=== PATIENT | female | born 2000 | race Caucasian/White ===

== ENCOUNTER 2022-01-17 03:48 | Inpatient (IN) | payer OTHER ==
[2022-01-17] MEDS ORDERED: Ringers Lactate 1,000 ML IV PRN (04:19)
[2022-01-17] MEDS ORDERED: CARBOPROST TROME 250 MCG/ML IM PRN (04:19)
[2022-01-17] MEDS ORDERED: METHYLERGONOVINE 0.2MG/ML AMP IM PRN (04:19)
[2022-01-17 04:55] VITALS: BMI 41.5
[2022-01-17 04:56] LABS: Absolute Lymphocytes (CBC) 2.9 K/uL (0.7-4.9); Lymphocytes % 21.2 % (15.3-44.8); MPV 8.1 fL (7.6-11.3); RBC Red Blood Cell Count 3.87 M/uL (3.86-4.86)
[2022-01-17] MEDS ORDERED: Ringers Lactate 1,000 ML IV SCH (05:00)
[2022-01-17] MEDS: OXYTOCIN/LR 20 UNIT/1,000 ML BAG IV SCH (05:15)
[2022-01-17] MEDS: BUTORPHANOL 1 MG/ML INJ IV PRN ×2 (10:22→14:47)
[2022-01-17] MEDS: PROMETHAZINE INJ 25 MG/ML AMP IM PRN ×2 (10:24→14:54)
[2022-01-17] MEDS ORDERED: BUPIVACAINE 0.25% PF 10 ML VIAL IJ PRN (12:16)
[2022-01-17] MEDS ORDERED: 0.2% ROPIVACAINE (200 MG/100 ML) BAG EP ONE (12:18)
[2022-01-17] MEDS ORDERED: FENTANYL CITR 100 MCG/2 ML IV ONE (13:00)
[2022-01-17] MEDS ORDERED: ROPIVACAINE HCL 0.2% 20ML AMP IV ONE (13:00)
--- NOTE | 2022-01-17 16:38 | PN ---
The patient is now on 20 milliunits of Pitocin. She was radha every 90 seconds for awhile and has spaced out a little bit. Baby looks good. She is 3 to 3.5, 70%. Baby is still -2 station, well applied to the cervix. She has tried pelvic rocking with birthing ball. She has had 2 doses of Sta dol IV over the last few hours. Discussion with the patient will be set continued to see if we make any progress, but if no progress during the next 2-3 hours, at that point may consider . Rig ht now, I think it is a little early and served as the patient. Full discussion. ANGÉLICA/MYESHA Voice ID: [id number] Report ID: [id number]
[2022-01-17] MEDS ORDERED: CEFAZOLIN 2 GM in NA CHLORIDE 0.9% 100 ML IVPB PRN (17:54)
[2022-01-17] MEDS ORDERED: METOCLOPRAMIDE 10 MG/2mL INJ IV PRN (17:54)
[2022-01-17] MEDS ORDERED: NA CIT/CITRIC AC 30 ML ORAL UDC PO PRN (17:54)
[2022-01-17] MEDS ORDERED: FAMOTIDINE 20 MG/2 ML VIAL IV PRN (17:54)
[2022-01-17] MEDS ORDERED: BUPIVACAINE 0.75% (PF) 2 ML SP ONE (19:20)
[2022-01-17] MEDS ORDERED: LIDOCAINE 1.5% W/EPI AMP 5 ML ONE (19:20)
[2022-01-17] MEDS ORDERED: MORPHINE SULFATE/PF 1 MG/ML (10 ML AMP) ONE (19:20)
[2022-01-17] MEDS ORDERED: Phenylephrine HCl 10 MG/ML 1 ML VIAL ONE (19:21)
--- NOTE | 2022-01-17 19:23 | PN ---
21-year-old female, primigravida, approximately 38 weeks and 3-5 days failure to progress in labor. The patient was on 20 milliunits of Pitocin, radha every 90 seconds during the day never really got below -1 to -2 station. Difficult to say what position the baby was then. Cervix dilated to 3 cm, but the baby never descended as I said past -1 station, probably -2 would be more realistic. Bab y looks good on the monitor. Vital signs were all stable. The patient has requested that we stop Pi tocin and proceed with at this point. Infection; blood loss; anesthetic complications; inju ry to bladder, bowel, ureter; postoperative complications; clots in legs and pneumonia discussed. Th e patient knows fully well, does not constitute all the possible problems that could occur during or following surgery. Anesthesia and support personnel have been notified. Preparations are being made at this point for as expeditiously as possible. No change in physical status. Heart and l ungs are clear. The patient is alert. She has had 2 doses of Stadol IV, but is still quite alert. We will proceed with section for failure to progress, failure to descend the vertex. ANGÉLICA/MYESHA Voice ID: [id number] Report ID: [id number]
[2022-01-17] MEDS ORDERED: OXYTOCIN 10 UNIT/ML ML ONE ×3 (19:54→22:04)
[2022-01-17] MEDS ORDERED: ONDANSETRON 4 MG/2 ML VIAL ONE ×2 (20:18→22:04)
--- NOTE | 2022-01-17 21:16 | CON ---
Date of Consultation: 01/17/2022 Brief History Of Present Illness: The patient is a 21-year-old primigravida, approximately 38 weeks 3-5 days, failure to progress in labor, female, who was radha every 90 seconds, but h er cervix only dilated 3 cm. The baby never descended, station 1, possibly 2, monitored, appeared to be doing well. For the patient, she ultimately failed to progress and as such, it was determined th at the patient needed a . I am consulted to see the patient in the operating room to assist Dr. Gardiner with her emergency . Past Medical History: By report past medical history negative. Past Surgical History: Negative. She is primigravida as described above. Allergies: NO KNOWN DRUG ALLERGIES. Review of Systems: The patient is radha and complaining of contraction pains. Otherwise, no additional complaints . Physical Examination: General: She is awake, alert, and oriented. Psychiatric: She is appropriate, conversive. She appears in moderate pain and distress with her con tractions. HEENT: Otherwise normocephalic. Her sclerae were anicteric. Mucous membranes moist. Oropharynx cl ear. Abdomen: Gravid, appeared to be near full term. She has obesity generally. Extremities: No clubbing, cyanosis, or edema. Skin: Warm and dry. Laboratory Data: Laboratory exam revealed a white blood cell count of 13.8, hemoglobin is 10.7, obed tocrit 32.0, platelet count was 282. She has Rh and hep B pending. COVID was negative. No imaging was performed. The baby was being monitored throughout the procedure. Assessment And Plan: This is a 21-year-old female who presents with failure to progress with her hobbs. As such, she is scheduled for an emergency at this point with Dr. Gardiner. I will as sist as described by Dr. Gardiner's recommendations. Please see Dr. Gardiner's note for full details. Thank you for this interesting consult. ROMMEL/MYESHA Voice ID: [id number] Report ID: [id number]
[2022-01-17] MEDS ORDERED: ONDANSETRON 4 MG/2 ML VIAL IV PRN (21:54)
[2022-01-17] MEDS ORDERED: D5LR 1,000 ML with OXYTOCIN 20 UNIT IV SCH ×2 (22:00)
[2022-01-17] MEDS ORDERED: D5LR 1,000 ML IV ONE (22:03)
[2022-01-17] MEDS: METHYLERGONOVINE 0.2 MG TAB PO PRN (22:06)
[2022-01-17 22:37] VITALS: O2SAT 100
[2022-01-18] MEDS ORDERED: KETOROLAC 30 MG/ML INJ IM PRN (00:01)
[2022-01-18] MEDS ORDERED: Oxycodone HCl/Acetaminophen 1 TAB TAB PO PRN (00:01)
[2022-01-18] MEDS ORDERED: DIPHENHYDRAMINE 25 MG TAB/CAP PO PRN (00:01)
[2022-01-18] MEDS ORDERED: BISACODYL 10 MG RECTAL SUPP PR PRN (00:01)
[2022-01-18] MEDS ORDERED: ACETAMINOPHEN 500 MG TAB PO PRN (00:01)
[2022-01-18] MEDS ORDERED: IBUPROFEN 200 MG TAB PO PRN (00:01)
[2022-01-18] MEDS: METHYLERGONOVINE 0.2 MG TAB PO PRN ×3 (01:53→09:41)
[2022-01-18 04:22] LABS: Hematocrit 27.2 % (36.0-45.0)
[2022-01-18] MEDS ORDERED: NA CHLORIDE 0.9% 100 ML ONE (04:54)
[2022-01-18] MEDS ORDERED: CEFAZOLIN SODIUM 1 GM/VIAL ONE (04:54)
[2022-01-18] MEDS: OXYTOCIN/LR 20 UNIT/1,000 ML BAG IV SCH (04:58)
[2022-01-18] MEDS ORDERED: CEFAZOLIN 2 GM IN 0.9% NACL 2 GM/100 ML BAG IV ONE (05:00)
[2022-01-18] MEDS ORDERED: CEFAZOLIN 2 GM in NA CHLORIDE 0.9% 100 ML IVPB ONE (05:00)
--- NOTE | 2022-01-18 07:09 | PN ---
Postoperatively, the patient has done quite well. She is quite alert this morning, eating crackers, says she is very hungry. Output has been good. Vital signs have been stable. H and H went to 27, w hich was expected with the amount of blood loss at the time of surgery. Lochia since then has been q uite normal. We will discontinue George and IV around lunchtime. She has already ambulated, will beg in further ambulation. Full postoperative talk given. She has not had her Tdap shot during the preg alisha. Encouraged to do so before she leaves. She will call the office today to make an appointment to come back and see me on Monday of next week. She knows when she is at home if she has a fever, s evere pain, heavy bleeding, or any other problems to call and come back and see me sooner. She is Rh positive, immune to Rubella. We will go over everything again tomorrow, but right now she is doing quite well. ANGÉLICA/MYESHA Voice ID: [id number] Report ID: [id number]
[2022-01-18] MEDS ORDERED: MAGNESIUM HYDROXIDE 8% 30 ML ONE (12:01)
--- NOTE | 2022-01-18 12:42 | PREOPHP ---
Date of Admission: 01/17/2022 History Of Present Illness: Carole Santana is a 21-year-old primigravida at approximately 38 weeks and 5 days, came in with rupture of membranes, early labor. She is now on Pitocin augmentation. Contra cting regularly, but still not very uncomfortable. Exam shows the patient is 2 cm vertex still -2 st ation. Complete rupture performed. Clear fluid. Vital signs all stable. Admission talk and labor talk given. Family History: Paternal grandmother with diabetes, an aunt with gallstones. No past serious medica l illnesses. Past Surgical History: No previous surgeries. Allergies: NO ALLERGIES. Medications: No medicines prior to admission other than vitamins and iron. Social History: Does not smoke. Taking vitamins prior to admission. Physical Examination: HEENT: Clear. Pupils equal, round, reactive to light and accommodation. Conjunctivae well perfused . No oral, lingual, or buccal lesions. Chest and Lungs: Clear. Heart: Without murmurs, thrills, heaves, or rubs. Breasts: Without masses on previous visits. Abdomen: Obese. Extremities: Clear without edema, cyanosis, or clubbing. Pelvic: As stated 2 cm, 50% to 60%, vertex -2 station. Complete rupture of membranes now. Baby's h ead should become better approximated against the cervix and we should start seeing some progress fairly soon. ANGÉLICA/MYESHA Voice ID: [id number]
--- NOTE | 2022-01-18 12:45 | OP ---
Surgeon: Johnny Gardiner MD [employer] Lead: Alex Sexton M.D. Anesthesiologist: Dr. Fink. Indications: A 21-year-old primigravida 38 weeks 5 days, failure to progress in labor. Full preoper ative counseling concerning procedure and possible complications including infection; blood loss; ane sthetic complications; injury to bladder, bowel, ureter; postoperative complications; clots in legs; pneumonia. The patient knows fully well this does not constitute all the possible problems that coul d occur during or following surgery. Anesthesia: Spinal block anesthesia. Procedure In Detail: After spinal block and prepping and draping, time-out was performed. A Pfannen stiel incision was created. Incision was carried to the fascia. Fascia was incised and incision car ried transversely bilaterally. Anterior fascial plane was developed with both blunt and sharp dissec tion. Underlying rectus muscle and peritoneum entered after grasping with Oanh clamp. Lo w transverse uterine incision created. An 8 pounds 3 ounces female was delivered without difficultie s, Apgars 9 and 9. Straight occiput posterior position. Placenta was removed manually. Uterus exte riorized. Nujeepcx-mk-oyuatr hypotonus. 0.2 mg of Methergine IM, IV drip Pitocin and 10 units of Pit ocin were injected directly into the myometrium. Good hemostasis then occurred. Uterus closed with a running locked stitch of 1 chromic followed by 2 ysgpja-dk-jqcav stitches long suture line for comp lete closure. Gutters cleared off clot and blood. Uterus replaced in the peritoneal cavity. Inspec tion of suture line again showed no further bleeding. Rectus muscles were reapproximated with 1 Vicr yl and 3 interrupted sutures. The fascia was closed with 1 PDS running from either angle to the midl ine. Subcutaneous tissue closed with 2-0 plain. [place] used for the skin. The patient tolerated a ll procedures well. Vital signs were all stable. Transferred back to her room in good condition. Final Diagnoses: Term intrauterine at 38 weeks 5 days, failure to progress in labor, persi stent occiput posterior, primary section, spinal block anesthesia, edaskjnf-ap-hpxiuf uterin e hypotonus. ANGÉLICA/MODL Voice ID: [id number] Report ID: [id number]
[2022-01-18 23:40] LABS: RPR (Rapid Plasma Reagin) NON-REACT (NON-REACT)
[2022-01-18] MEDS: Oxycodone HCl/Acetaminophen 1 TAB TAB PO PRN (23:57)
[2022-01-19] MEDS ORDERED: MAGNESIUM HYDROXIDE 8% 30 ML PO PRN (00:05)
[2022-01-19] MEDS: Oxycodone HCl/Acetaminophen 1 TAB TAB PO PRN ×2 (04:00→11:01)
--- NOTE | 2022-01-19 09:32 | DS ---
Hospital Course: A 21-year-old, primigravida, at 38 weeks 5 days, underwent primary section for failure to progress in labor. Delivered of an 8-pound 3-ounce female infant, Apgars 9 and 9. L ow transverse uterine incision. Uuvdxzjk-me-iwcorj hypotonus. 1200 cc blood loss. Uterus contracte d down well with IV drip, Pitocin, IM Methergine and intramuscular Pitocin 10 units. Postoperatively , has done quite well, is afebrile, ambulating, voiding lochia is normal. Hematocrit on admission 32 , went to 27. The patient is feeling quite well, is ambulating without dizziness. Will continue to take iron pills, which she was on prior to admission the next month or so. She is to report any temp erature elevation of 100 degrees or greater, severe pain, heavy bleeding, or any other type of abnorm alities. Tdap has been offered. No post spinal block problems. She has no complaints or problems t his morning. Dismissed at her request with tramadol. She knows this goes through the breast milk an d will take the pills judiciously. The patient is Rh positive, immune to rubella, negative COVID, ne gative beta strep. Final Diagnoses: Term intrauterine at 38 weeks 5 days, failure to progress in labor, prima ry section, spinal block anesthesia, wcvhnowg-df-oaoaud uterine hypotonus. Dismissed to marie cantor in my office. ANGÉLICA/MYESHA Voice ID: [id number] Report ID: [id number]
[2022-01-19 13:20] VITALS: BP 124/85; TEMP 98.2
--- NOTE | 2022-01-22 14:15 | P.OP ---
Midlevel Provider: Aaliyah Gardiner (Dr. Gardiner was primary - [employer]) Preoperative diagnosis: Emergency for non-progression Postoperative diagnosis: Emergency for non-progression Primary procedure: Emergency for non-progression Anesthesia: Spinal Estimated blood loss: 150cc Specimen: Placenta, 8lb 3 oz female baby Findings: Placenta, 8lb 3 oz female baby Complications: None Transferred to: Recovery Room Condition: Good
--- NOTE | 2022-01-23 00:33 | OP ---
Date of Procedure: 01/17/2022 Surgeon: Alex Sexton MD, Indication/preoperative Diagnosis: The patient is a 21-year-old primigravida, 38-week 5-day failure to progress in labor. Full preoperative counseling was performed by Dr. Gardiner. I was consulted preo peratively for emergency due to non-progression. Dr. Gardiner had discussed all risks, benefi ts, and alternatives of the above stated plan and the patient agreed to proceed as indicated. Postoperative Diagnosis: The patient is a 21-year-old primigravida, 38-week 5-day failure to progres s in labor. Full preoperative counseling was performed by Dr. Gardiner. I was consulted preoperatively for emergency due to non-progression. Dr. Gardiner had discussed all risks, benefits, and al ternatives of the above stated plan and the patient agreed to proceed as indicated. Procedure Performed: Emergency . Anesthesia: Spinal. Estimated Blood Loss: 150 cc. Findings: 8 pounds 3 ounces female baby placenta were all delivered. Complications: None. Disposition: The patient transferred to recovery room in good condition. Co-surgeon: Johnny Gardiner MD. Procedure In Detail: After spinal block and prepping and draping, the patient was prepped and draped in usual sterile fashion. After adequate anesthesia was confirmed, a Pfannenstiel incision was crenidhi wick. An incision was carried down to the fascia using a 10 blade. The fascia was incised. Incision was carried transversely bilaterally. Anterior fascial plane was developed with both blunt and javier p dissection. This task was shared by Dr. Gardiner and myself. The underlying rectus muscles and peritoneum entered and grasped with Oanh clamps also. This was shared with Dr. Gardiner and mildred f. Low transverse uterine incision was created. 8 pounds 3 ounces female baby was delivered without difficulties. Apgars 9 and 9. Straight occiput posterior position. Placenta was removed manually. Uterus exteriorized, moderate to severe hypertonus. 0.2 mg of Methargen IM and IV drip. 10 units of Pitocin were injected directly in the myometrium. Good hemostasis was achieved. Otherwise, the u terus was closed with a running lock suture of one chromic followed by two ghfmec-wa-vtdrn stitches a long the suture line for complete closure. Gutters were cleared of clot blood. Uterus was placed in the peritoneal cavity, inspected. Suture line showed no additional hemostaters were required. Sutu res in good anatomic position. The fascia was then closed with a running #1 PDS from either angle to the midline. Subcutaneous tissue was closed with 2-0 plain. [place] were used for skin. The patie nt tolerated the procedure well without evidence of complication. Transferred back to the room in go od condition. All vital signs were good. Final Diagnosis: Term intrauterine , 30 weeks 5 days. Failure to progress to labor, persis tent occipitoposterior. Primary section. Spinal block anesthesia. Moderate to severe uter ine hypertonus. ROMMEL/MYESHA Voice ID: [id number] Report ID: [id number]
== END 2022-01-19 11:55 | disposition home or self-care (01) | DRG 788 ==
LOC: 2ND-WC 03:48
PROVIDERS: ADMIT Specialist; ATTEND Specialist
PROC: 10D00Z1 Extraction of Products of Conception, Low, Open Approach (ICD-10-PCS; principal; 2022-01-17 19:26)
DX: O62.0 Primary inadequate contractions (principal); O64.0XX0 Obstructed labor due to incomplete rotation of fetal head, not applicable or unspecified; O62.2 Other uterine inertia; Z3A.38 38 weeks gestation of pregnancy; Z37.0 Single live birth; Z20.822 Contact with and (suspected) exposure to COVID-19
CPT/HCPCS: 36415; 85014; 85018; 85025; 86592; 86850; 86900; 86901; 88307; J0595; J0690; J2370; J2405; J2550; J2590; J2765; J3490; J7120; J7121; U0003